=== PATIENT | female | born 1940 | race Caucasian/White ===

== ENCOUNTER 2016-11-17 08:07 | Outpatient (CLI) | payer MEDICARE ==
[2016-11-17 09:47] LABS: THYROID STIMULATING HORMONE 3.62 uIU/mL (0.34-5.60)
== END 2016-11-17 08:08 | disposition home or self-care (01) ==
LOC: LAB 08:07
PROVIDERS: ATTEND Physician Assistant Medical
DX: E04.9 Nontoxic goiter, unspecified (principal); R53.83 Other fatigue
CPT/HCPCS: 36415; 82533; 84439; 84443; 84481

== ENCOUNTER 2016-11-19 08:11 | Outpatient (CLI) | payer MEDICARE ==
--- NOTE | 2016-11-19 11:54 | Ultrasound Report ---
THYROID ULTRASOUND: 11/19/2016 CLINICAL INDICATION: Goiter. TECHNIQUE: Real-time scanning was performed with customer support representative static images obtained. FINDINGS: The right lobe measures 4.3 x 1.7 x 1.5 cm, and the left lobe measures 4.6 x 1.6 x 1.2 cm. The isthmus measures 3 mm. In the mid portion of the left lobe, there is a 1.8 x 1.5 x 0.9 cm hete rogeneous vascular nodule. By JAYDE guidelines, this is an intermediate suspicion nodule, and fine-nee dle aspiration is recommended. Tiny spongiform nodules are scattered in the right lobe. No adenopat hy is seen. IMPRESSION: INTERMEDIATE SUSPICION NODULE IN THE MID LEFT LOBE. FINE-NEEDLE ASPIRATION IS RECOMMEND ED BY JAYDE GUIDELINES. JOB #: [id number] [id number] JOB #:[id number]
== END 2016-11-19 08:12 | disposition home or self-care (01) ==
LOC: DI 08:11
PROVIDERS: ATTEND Physician Assistant Medical
DX: E04.1 Nontoxic single thyroid nodule (principal)
CPT/HCPCS: 76536

== ENCOUNTER 2016-12-03 09:23 | Outpatient (CLI) | payer MEDICARE ==
[2016-12-03 12:52] VITALS: BP 191/87
[2016-12-03] MEDS ORDERED: BUFFERED LIDOCAINE 10 ML SYRINGE IU ONE (13:34)
--- NOTE | 2016-12-07 08:36 | Ultrasound Report ---
ULTRASOUND-GUIDED FINE NEEDLE ASPIRATION LEFT THYROID NODULE: 12/03/2016 CLINICAL INDICATION: A 1.7 cm nodule left lobe of thyroid. FINDINGS: Following obtaining informed consent, the patient's left neck was prepped and draped in th e usual sterile fashion. The skin and soft tissues were anesthetized with lidocaine. Four 22-gauge fine needle aspirations were performed under ultrasound guidance. The patient tolerated the procedure well. No immediate complications. Needle washings were submitted to Pathology. IMPRESSION: SUCCESSFUL FINE NEEDLE ASPIRATION OF LEFT THYROID NODULE. AWAIT PATHOLOGY REPORT. JOB #: [id number] JOB #:[id number]
== END 2016-12-03 09:24 | disposition home or self-care (01) ==
LOC: DI 09:23
PROVIDERS: ATTEND Physician Assistant Medical
DX: E04.1 Nontoxic single thyroid nodule (principal)
CPT/HCPCS: 10022; 76942; 88173; 88305

== ENCOUNTER 2021-10-02 08:52 | Outpatient (CLI) | payer MEDICARE ==
[2021-10-02 09:12] LABS: BASOPHILS % (AUTO) 0.4 %; EOSINOPHILS # (AUTO) 0.4 10^3/uL (0.0-0.7); EOSINOPHILS % (AUTO) 6.8 %; HCT - HEMATOCRIT 41.6 % (37.0-47.0); HGB - HEMOGLOBIN 13.8 g/dL (12.0-16.0); LYMPHOCYTES # (AUTO) 1.1 10^3/uL (1.5-3.5); LYMPHOCYTES % (AUTO) 19.7 %; MEAN CORPUSCULAR HEMOGLOBIN 29.2 pg (27.0-31.0); MEAN CORPUSCULAR HGB CONC 33.2 g/dL (32.0-36.0); MEAN CORPUSCULAR VOLUME 88.1 fL (81.0-99.0); MEAN PLATELET VOLUME 10.1 fL (7.9-10.8); MONOCYTES # (AUTO) 0.5 10^3/uL (0.0-1.0); MONOCYTES % (AUTO) 9.8 %; NEUTROPHILS # (AUTO) 3.4 10^3/uL (1.5-6.6); NEUTROPHILS % (AUTO) 62.9 %; PLT - PLATELET COUNT 178 10^3/uL (130-450); RED BLOOD COUNT 4.72 10^6/uL (4.20-5.40); RED CELL DISTRIBUTION WIDTH 13.4 % (12.0-15.0); WHITE BLOOD COUNT 5.3 x10^3/uL (4.8-10.8)
[2021-10-02 09:33] LABS: ALBUMIN 4.3 g/dL (3.2-5.5); ALBUMIN/GLOBULIN RATIO 1.5 (1.0-2.2); ALKALINE PHOSPHATASE 83 IU/L (42-121); ALT ALANINE AMINOTRANSFERASE 19 IU/L (10-60); AST ASPARTATE AMINOTRANSFERASE 22 IU/L (10-42); BILIRUBIN,TOTAL 0.7 mg/dL (0.2-1.0); BUN - BLOOD UREA NITROGEN 22 mg/dL (6-20); CALCIUM 9.5 mg/dL (8.5-10.3); CARBON DIOXIDE - CO2 25 mmol/L (21-32); CHLORIDE 105 mmol/L (101-111); CHOL/HDL RATIO 4.1 (<4.4); CHOLESTEROL 231 mg/dL; CREATININE 1.1 mg/dL (0.4-1.0); GFR - MDRD 48 (>89); GLUCOSE 114 mg/dL (70-100); HDL CHOLESTEROL 57 mg/dL; LDL CHOLESTEROL,CALCULATED 160 mg/dL; LDL/HDL RATIO 2.8 (<4.4); POTASSIUM 4.4 mmol/L (3.5-5.0); SODIUM 141 mmol/L (135-145); TOTAL PROTEIN 7.1 g/dL (6.7-8.2); TRIGLYCERIDES 69 mg/dL; VLDL CHOLESTEROL 14 mg/dL
[2021-10-02 09:43] LABS: THYROID STIMULATING HORMONE 3.37 uIU/mL (0.34-5.60)
[2021-10-02 20:11] LABS: ESTIMATED AVERAGE GLUCOSE 97 mg/dL (70-100)
== END 2021-10-02 08:53 | disposition home or self-care (01) ==
LOC: LAB 08:52
PROVIDERS: ATTEND Physician Assistant
DX: I10 Essential (primary) hypertension (principal); E78.2 Mixed hyperlipidemia; R73.03 Prediabetes; Z13.29 Encounter for screening for other suspected endocrine disorder
CPT/HCPCS: 36415; 80053; 80061; 83036; 83721; 84443; 85025

== ENCOUNTER 2021-10-16 09:05 | Outpatient (CLI) | payer MEDICARE | END 2021-10-16 09:06 | disposition home or self-care (01) | LOC: DI 09:05 | PROVIDERS: ATTEND Physician Assistant | DX: R01.1 Cardiac murmur, unspecified (principal); I51.7 Cardiomegaly | CPT/HCPCS: 93306 ==